=== PATIENT | female | born 1990 | race Caucasian/White ===

== ENCOUNTER 2016-11-15 08:00 | Outpatient (CLI) | payer OTHER | END 2016-11-15 23:59 | DX: O02.0 Blighted ovum and nonhydatidiform mole (principal) ==

== ENCOUNTER 2016-11-29 08:00 | Outpatient (CLI) | payer OTHER | END 2016-11-29 23:59 | LOC: LAB.N 08:00 | PROVIDERS: ATTEND Specialist | DX: O02.0 Blighted ovum and nonhydatidiform mole (principal) | CPT/HCPCS: 36415; 84702 ==

== ENCOUNTER 2016-12-20 08:00 | Outpatient (CLI) | payer OTHER | END 2016-12-20 23:59 | LOC: LAB.N 08:00 | PROVIDERS: ATTEND Specialist | DX: O02.0 Blighted ovum and nonhydatidiform mole (principal) | CPT/HCPCS: 36415; 84702 ==